=== PATIENT | female | born 1985 | race Hispanic/Latino ===

== ENCOUNTER 2019-07-02 19:22 | Emergency (ER) | payer BC, SELFPAY ==
[2019-07-02] MEDS ORDERED: ACETAMINOPHEN 500 MG TAB ONE (20:19)
[2019-07-02] MEDS ORDERED: HYDROCODONE/CHLORPHEN 5 ML/OSYR ONE (20:19)
[2019-07-02] MEDS ORDERED: IBUPROFEN 400 MG TAB ONE (20:19)
--- NOTE | 2019-07-02 20:38 | RAD REPORT ---
EXAM DESCRIPTION: RAD - Chest Pa And Lat (2 Views) - 07/02/2019 8:29 pm CLINICAL HISTORY: Cough;Chest pain Chest pain. COMPARISON: No comparisons FINDINGS: The lungs are clear. The heart is normal in size. No displaced fractures. IMPRESSION: No acute or concerning finding suspected.
--- NOTE | 2019-07-02 21:25 | ER ---
Nurse's Notes [facility] – [place], [place] Name: Patience Goldman Age: 34 yrs Sex: Female : 1985 Arrival Date: 07/02/2019 Time: 19:25 Bed 11 Private MD: Diagnosis: Acute upper respiratory infection, unspecified Presentation: 07/02 20:00 Presenting complaint: Patient states: congestion \T\ painful cough x 3 days. Transition aa1 of care: patient was not received from another setting of care. Onset of symptoms was June 30, 2019. Risk Assessment: Do you want to hurt yourself or someone else? Patient reports no desire to harm self or others. Initial Sepsis Screen: Does the patient meet any 2 criteria? HR > 90 bpm. Does the patient have a suspected source of infection? No. Patient's initial sepsis screen is negative. Care prior to arrival: None. 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 - Social history:: Smoking status: Patient denies any tobacco usage or history of. - Ebola Screening: : Patient denies exposure to infectious person Patient denies travel to an Ebola-affected area in the 21 days before illness onset. Screenin:05 Abuse screen: Denies threats or abuse. Denies injuries from another. Nutritional aa1 screening: No deficits noted. Tuberculosis screening: No symptoms or risk factors identified. Fall Risk None identified. Assessment: 20:05 General: Appears in no apparent distress. comfortable, Behavior is calm, cooperative, aa1 appropriate for age. Pain: Complains of pain in chest Quality of pain is described as sore Aggravated by cough. Neuro: Level of Consciousness is awake, alert, obeys commands, Oriented to person, place, time, situation, Speech is normal. Cardiovascular: Heart tones S1 S2 present Chest pain is denied. Respiratory: Reports cough that is pain with cough Airway is patent Respiratory effort is even, unlabored, Respiratory pattern is regular, symmetrical, Breath sounds are clear bilaterally. GI: No signs and/or symptoms were reported involving the gastrointestinal system. : No signs and/or symptoms were reported regarding the genitourinary system. EENT: No signs and/or symptoms were reported regarding the EENT system. Derm: Skin is intact, is healthy with good turgor, Skin is pink, warm \T\ dry. Musculoskeletal: Circulation, motion, and sensation intact. Capillary refill < 3 seconds. 20:20 Reassessment: Pt taken to x-ray at this time. aa1 21:34 Reassessment: Patient appears in no apparent distress at this time. Patient is alert, aa1 oriented x 3, equal unlabored respirations, skin warm/dry/pink. Discussed d/c \T\ f/u instructions with pt; denies questions or concerns at this time. Ambulatory to lobby with steady gait. Patient states feeling better. Patient states symptoms have improved. Vital Signs: 20:04 BP 133 / 73; Pulse 115; Resp 18; Temp 99.5; Pulse Ox 100% on R/A; Weight 99.79 kg; aa1 Height 5 ft. 2 in. (157.48 cm); Pain 7/10; 21:34 BP 135 / 69; Pulse 94; Resp 18; Temp 98.5; Pulse Ox 99% on R/A; Pain 3/10; aa1 20:04 Body Mass Index 40.24 (99.79 kg, 157.48 cm) aa1 ED Course: 19:25 Patient arrived in ED. cl3 19:53 [facility] cp 19:53 Prince Benavidez MD is Attending Physician. cp 19:59 Velia Marinelli, DIONISIO is Primary Nurse. aa1 20:02 Triage completed. aa1 20:03 Flu and/or RSV swab sent to lab. Strep swab sent to lab. aa1 20:04 Arm band placed on right wrist. aa1 20:05 Patient has correct armband on for positive identification. Call light in reach. Pulse aa1 ox on. NIBP on. 20:29 XRAY Chest Pa And Lat (2 Views) In Process Unspecified. EDMS 21:34 No provider procedures requiring assistance completed. Patient did not have IV access aa1 during this emergency room visit. Administered Medications: 20:19 Drug: Tylenol 1000 mg Route: PO; aa1 21:33 Follow up: Response: No adverse reaction; Pain is decreased aa1 20:19 Drug: Ibuprofen 800 mg Route: PO; aa1 21:33 Follow up: Response: No adverse reaction; Pain is decreased aa1 20:20 Drug: Tussionex Pennkinetic ER 5 ml Route: PO; aa1 21:33 Follow up: Response: No adverse reaction; Marked relief of symptoms aa1 Outcome: 21:24 Discharge ordered by MD. stevenson 21:34 Discharged to home ambulatory, with family. aa1 21:34 Condition: good 21:34 Discharge instructions given to patient, Instructed on discharge instructions, follow up and referral plans. medication usage, Demonstrated understanding of instructions, follow-up care, medications, Prescriptions given X 2. 21:36 Patient left the ED. aa1 Signatures: Dispatcher [employer] Velia Boo RN RN aa1 Prince Espino PA PA cp Lewis, Charde cl3
--- NOTE | 2019-07-02 21:25 | EDPHYS ---
Physician Documentation [facility] Name: Patience Goldman Age: 34 yrs Sex: Female : 1985 Arrival Date: 07/02/2019 Time: 19:25 Bed 11 Private MD: ED Physician Prince Benavidez HPI: 07/02 20:10 This 34 yrs old Female presents to ER via Ambulatory with complaints of Flu cp Symptoms, Cough. 20:10 The patient or guardian reports cough, that is constant. cp 20:10 Onset: The symptoms/episode began/occurred 3 day(s) ago. Associated signs and symptoms: cp Pertinent positives: chest pain, sore throat, Pertinent negatives: diarrhea, fever, vomiting. Severity of symptoms: in the emergency department the symptoms are unchanged despite home interventions. 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 - Social history:: Smoking status: Patient denies any tobacco usage or history of. - Ebola Screening: : Patient denies exposure to infectious person Patient denies travel to an Ebola-affected area in the 21 days before illness onset. ROS: 20:15 Constitutional: Positive for body aches, Negative for fever, poor PO intake. cp 20:15 Eyes: Negative for injury, pain, redness, and discharge. cp 20:15 ENT: Positive for sore throat, Negative for drainage from ear(s), ear pain, difficulty swallowing, difficulty handling secretions. 20:15 Cardiovascular: Positive for chest pain, Negative for edema, palpitations. 20:15 Respiratory: Positive for cough, "sounds productive", Negative for shortness of breath, wheezing. 20:15 Abdomen/GI: Negative for abdominal pain, vomiting, diarrhea, constipation. 20:15 Back: Negative for pain at rest, pain with movement, radiated pain. 20:15 Skin: Negative for rash. 20:15 Neuro: Negative for altered mental status, headache, weakness. 20:15 All other systems are negative. Exam: 20:22 Constitutional: The patient appears in no acute distress, alert, awake, cp non-diaphoretic, non-toxic, well developed, well nourished. 20:22 Head/Face: Normocephalic, atraumatic. cp 20:22 Eyes: Periorbital structures: appear normal, Conjunctiva: normal, no exudate, no injection, Lids and lashes: appear normal, bilaterally. 20:22 ENT: External ear(s): are unremarkable, Ear canal(s): are normal, clear, TM's: dullness, bilaterally, Nose: is normal, Mouth: Lips: moist, Oral mucosa: pink and intact, moist, Posterior pharynx: is normal, airway is patent, no erythema, no exudate. 20:22 Neck: ROM/movement: is normal, is supple, no meningismus, no nuchal rigidity. 20:22 Chest/axilla: Inspection: normal, Palpation: is normal, no crepitus, no tenderness. 20:22 Cardiovascular: Rate: tachycardic, Rhythm: regular, Heart sounds: murmur, not appreciated, Edema: is not appreciated, JVD: is not appreciated. 20:22 Respiratory: the patient does not display signs of respiratory distress, Respirations: normal, no use of accessory muscles, no retractions, no splinting, no tachypnea, labored breathing, is not present, Breath sounds: are clear throughout, no decreased breath sounds, rhonchi, no stridor, no wheezing. 20:22 Abdomen/GI: Exam negative for discomfort, distension, guarding, Inspection: abdomen appears normal. 20:22 Back: pain, is absent, ROM is normal. 20:25 ECG was reviewed by the Attending Physician. cp Vital Signs: 20:04 BP 133 / 73; Pulse 115; Resp 18; Temp 99.5; Pulse Ox 100% on R/A; Weight 99.79 kg; aa1 Height 5 ft. 2 in. (157.48 cm); Pain 7/10; 21:34 BP 135 / 69; Pulse 94; Resp 18; Temp 98.5; Pulse Ox 99% on R/A; Pain 3/10; aa1 20:04 Body Mass Index 40.24 (99.79 kg, 157.48 cm) aa1 MDM: 19:54 Patient medically screened. sara 20:30 Differential diagnosis: bronchitis, flu, URI, pneumonia, cardiac arrythmia. cp 21:23 Antibiotic administration: Not indicated, the patient does not have an appreciated cp infiltrate. 21:23 Data reviewed: vital signs, nurses notes, lab test result(s), EKG, radiologic studies, cp plain films. Test interpretation: by ED physician or midlevel provider: ECG, plain radiologic studies. Counseling: I had a detailed discussion with the patient and/or guardian regarding: the historical points, exam findings, and any diagnostic results supporting the discharge/admit diagnosis, lab results, radiology results, to return to the emergency department if symptoms worsen or persist or if there are any questions or concerns that arise at home. Response to treatment: the patient's symptoms have markedly improved after treatment, and as a result, I will discharge patient. 07/02 20:05 Order name: Flu; Complete Time: 21:11 aa 07/02 20:05 Order name: Strep; Complete Time: 21:11 aa1 07/02 20:06 Order name: XRAY Chest Pa And Lat (2 Views); Complete Time: 21:11 cp 07/02 21:11 Interpretation: Report reviewed. cp 07/02 20:46 Order name: Throat Culture EDKS 07/02 20:06 Order name: EKG; Complete Time: 20:06 cp 07/02 20:06 Order name: EKG - Nurse/Tech; Complete Time: 20:20 cp EC:25 Rate is 118 beats/min. Rhythm is regular. MN interval is normal. QRS interval is cp normal. QT interval is normal. Interpreted by me. Reviewed by me. Administered Medications: 20:19 Drug: Tylenol 1000 mg Route: PO; aa1 21:33 Follow up: Response: No adverse reaction; Pain is decreased aa1 20:19 Drug: Ibuprofen 800 mg Route: PO; aa1 21:33 Follow up: Response: No adverse reaction; Pain is decreased aa1 20:20 Drug: Tussionex Pennkinetic ER 5 ml Route: PO; aa1 21:33 Follow up: Response: No adverse reaction; Marked relief of symptoms aa1 Disposition: 07/03 09:20 Co-signature as Attending Physician, Prince Benavidez MD I agree with the assessment and sara plan of care. Disposition: 07/02/19 21:24 Discharged to Home. Impression: Acute upper respiratory infection, unspecified. - Condition is Stable. - Discharge Instructions: Upper Respiratory Infection, Adult. - Prescriptions for Ibuprofen 800 mg Oral Tablet - take 1 tablet by ORAL route every 8 hours As needed take with food; 30 tablet. Guaifenesin AC 10- 100 mg/5 mL Oral Liquid - take 10 milliliters by ORAL route every 6 hours As needed no driving while taking medication; 180 milliliter. - Medication Reconciliation Form, Thank You Letter, Antibiotic Education, Prescription Opioid Use form. - Follow up: Private Physician; When: 2 - 3 days; Reason: Worsening of condition. - Problem is new. - Symptoms have improved. Signatures: Dispatcher [employer] [facility] Velia Marinelli RN RN aa1 Prince Benavidez MD MD cha Page, Corey, PA PA cp Corrections: (The following items were deleted from the chart) 07/02 20:12 20:06 Urine Dipstick-Ancillary ordered. aa1 20:12 20:06 Urine Test ordered. [facility] 20:46 20:06 Group A Streptococcus Rapid Sc+BA.LAB.BRZ ordered. [facility] EDKS 20:47 20:06 Influenza Screen (A \\T\\ B)+BA.LAB.BRZ ordered. [facility] EDKS 21:36 21:24 07/02/2019 21:24 Discharged to Home. Impression: Acute upper respiratory aa1 infection, unspecified. Condition is Stable. Forms are Medication Reconciliation Form, Thank You Letter, Antibiotic Education, Prescription Opioid Use. Follow up: Private Physician; When: 2 - 3 days; Reason: Worsening of condition. Problem is new. Symptoms have improved. cp
[2019-07-02 21:43] VITALS: BP 135/69; TEMP 98.5; O2SAT 99
--- NOTE | 2019-07-03 08:35 | EKG ---
Test Date: 2019-07-02 Test Time: 20:17:32 Principal Technologist: KANE MEASUREMENT RESULTS: Intervals: Rate: 118 AL: 150 QRSD: 72 QT: 314 QTc: 440 [place]: P: 36 AL: 150 QRS: 5 T: 12 INTERPRETIVE STATEMENTS: Sinus tachycardia Otherwise normal ECG Compared to ECG 09/27/2000 10:09:00 Sinus bradycardia no longer present Atrial premature complex(es) no longer present Electronically Signed On 07-03-19 08:34:47 SKILL TRAINING PROGRAM COORDINATOR by El Castellanos
== END 2019-07-02 21:36 | disposition home or self-care (01) ==
LOC: ER 19:22
DX: J06.9 Acute upper respiratory infection, unspecified (principal)
CPT/HCPCS: 71046; 87070; 87081; 87804; 93005; 99284